=== PATIENT | female | born 1955 | race Caucasian/White ===

== ENCOUNTER 2018-03-21 21:20 | Observation (INO) ==
[2018-03-21] MEDS ORDERED: Morphine Inj 4 MG/ML Vial IV.PUSH ONE (22:15)
[2018-03-21] MEDS ORDERED: Sod Chloride 0.9% Inj 1,000 ML IV.SIG ONE (22:15)
--- NOTE | 2018-03-21 22:27 | ED ---
HPI General Chief Complaint: Abdominal Pain Stated Complaint: Abd Pain Time Seen by Provider: 03/21/18 22:14 Source: patient Mode of arrival: ambulatory Limitations: no limitations History of Present Illness HPI narrative: 62-year-old female with PMH of hypertension presents the ED for evaluation of 710 epigastric abdominal pain. Onset around 8:00 this evening after eating a dinner of 3 slices of pizza. Pain is described as aching, no alleviating or exacerbating factors reported. States the pain radiates to the right side and over to the right side of the back. She endorses accompanying nausea without vomiting. She denies associated chest pain, palpitations, shortness of breath, diaphoresis. She denies dysuria, hematuria, back pain. She denies recent history of fever, chills. She is a lifelong non-smoker. She is unsure of any familial cardiac history. She denies history of abdominal surgery. She endorses occasional alcohol use. No treatment attempted before arrival. Related Data Allergies Allergy/AdvReac Type Severity Reaction Status Date / Time Sulfa (Sulfonamide Allergy Arrhythmias Verified 03/21/18 21:59 Antibiotics) Review of Systems ROS: all other systems reviewed are negative [facility] Medical History Medical History Hypertension (Acute) Surgical History Surgical History No history of previous surgery (Acute) Social History Social History Substance History: No History of Abuse Second Hand Smoke Exposure: No Smoking Status: Never smoker How Often Do You Have a Drink Containing Alcohol: Never Recent Travel in [facility] within the Last 8 Weeks: No Recent Out of Country Travel within the Last 8 Weeks: No Immunization History Tetanus Immunization: >5 Years Hx Influenza Vaccine This Season: No Exam Narrative Exam Narrative: GENERAL: Well-developed, well-nourished white female no acute distress. SKIN: Focused skin assessment warm/dry. HEAD: Atraumatic. Normocephalic. EYES: Pupils equal and round. No scleral icterus. No injection or drainage. ENT: No nasal bleeding or discharge. Mucous membranes pink and moist. NECK: Trachea midline. No JVD. CARDIOVASCULAR: Regular rate and rhythm. No murmur appreciated. RESPIRATORY: No accessory muscle use. Clear to auscultation. Breath sounds equal bilaterally. GASTROINTESTINAL: Abdomen soft, nondistended. No hepatosplenomegaly. Negative Bardales sign. Positive epigastric tenderness to palpation. No CVA tenderness. MUSCULOSKELETAL: No obvious deformities. No clubbing. No cyanosis. No edema. NEUROLOGICAL: Awake and alert. No obvious cranial nerve deficits. Motor grossly within normal limits. Normal speech. PSYCHIATRIC: Appropriate mood and affect; insight and judgment normal. Course Initial Documented Vital Signs Temperature 97.8 F 03/21/18 21:59 Pulse Rate 64 03/21/18 21:59 Respiratory Rate 16 03/21/18 21:59 Blood Pressure 179/87 H 03/21/18 21:59 Pulse Oximetry 99 03/21/18 21:59 Last Documented Vital Signs Temperature 97.8 F 03/21/18 21:59 Pulse Rate 64 03/21/18 21:59 Respiratory Rate 16 03/21/18 21:59 Blood Pressure 179/87 H 03/21/18 21:59 Pulse Oximetry 99 03/21/18 21:59 Medical Decision Making KRISSY Attestation KRISSY supervised visit: Yes Attestation: I, Dr. Garcia, have reviewed the advance practice practitioner's documentation and am in agreement, met with the patient face to face, made the diagnosis, and the medical decision making was done by me. *My assessment and Findings: Patient seen and evaluated with PA, please see PA notes for further details. Abdomen is soft, tender palpation in epigastrium. Lab work was fairly unremarkable. CT of the abdomen shows gallbladder wall thickening, dilatation of the gallbladder, as well as common bile duct dilatation. At this point, plan would be to admit the patient for further evaluation. Case was discussed with Dr. Huber for admission. [facility] Narrative Medical decision making narrative: 62-year-old female with PMH of hypertension presents to the ED for evaluation of 7/10 epigastric pain. Onset around 8 PM after eating a dinner of 3 slices of pizza. Vitals reviewed. On physical examination tenderness in the epigastric area but the exam is otherwise unremarkable. IV established. Patient was administered 4 mg morphine, 4 mg Zofran and 1 L normal saline. Lab work and radiological studies pending. EKG rate 55, sinus bradycardia. Normal intervals. Normal axis. No acute ST changes. Reviewed by Dr. Goetz. Patient signed out to at end of shift. Medical Screen Exam Complete: Yes Emergency Medical Condition: Yes Differential Diagnosis Differential Diagnosis: GERD versus cholecystitis versus pancreatitis versus ACS versus less likely dissecting aneurysm versus other Lab Data Result diagrams: 03/21/18 22:19 03/21/18 22:19 Lab Results 03/21/18 03/21/18 03/21/18 Range/Units 22:19 22:19 22:19 WBC 7.1 (4.0-11.0) th/mm3 RBC 4.62 (4.00-5.30) mil/mm3 Hgb 13.9 (11.6-15.3) gm/dL Hct 41.5 (35.0-46.0) % MCV 89.9 (80.0-100.0) fL MCH 30.0 (27.0-34.0) pg MCHC 33.4 (32.0-36.0) % RDW 15.0 (11.6-17.2) % Plt Count 183 (150-450) th/mm3 MPV 9.1 (7.0-11.0) fL Neut % (Auto) 60.4 (16.0-70.0) % Lymph % (Auto) 29.2 (9.0-44.0) % [place] % (Auto) 9.1 H (0.0-8.0) % Eos % (Auto) 0.8 (0.0-4.0) % Baso % (Auto) 0.5 (0.0-2.0) % Neut # (Auto) 4.3 (1.8-7.7) th/mm3 Lymph # (Auto) 2.1 (1.0-4.8) th/mm3 [place] # (Auto) 0.7 (0.0-0.9) th/mm3 Eos # (Auto) 0.1 (0.0-0.4) th/mm3 Baso # (Auto) 0.0 (0.0-0.2) th/mm3 WBC Differential . Differential Comment Auto diff final Sodium 141 (136-145) meq/L Potassium 3.6 (3.5-5.1) meq/L Chloride 108 H (98-107) meq/L Carbon Dioxide 24.8 (21.0-32.0) meq/L Anion Gap 8 (5-15) meq/L BUN 21 H (7-18) mg/dL Creatinine 0.77 (0.50-1.00) mg/dL Estimated GFR 76 L (>89) mL/min Random Glucose 117 H (74-106) mg/dL Calcium 9.0 (8.5-10.1) mg/dL Total Bilirubin 0.2 (0.2-1.0) mg/dL AST 35 (15-37) U/L ALT 92 H (10-53) U/L Alkaline Phosphatase 64 (45-117) U/L Troponin I Less than 0.02 L (0.02-0.05) ng/mL Total Protein 7.5 (6.4-8.2) g/dL Albumin 4.0 (3.4-5.0) g/dL Lipase 145 (73-393) U/L Urine Color (Yellw/Straw) Urine Clarity (Clear) Urine pH (5.0-8.5) Ur Specific [place] (1.002-1.035) Urine Protein (Neg-Trace) mg/dL Urine Glucose (UA) (Negative) mg/dL Urine Ketones (Negative) mg/dL Urine Occult Blood (Negative) Urine Nitrate (Negative) Urine Bilirubin (Negative) Urine Urobilinogen (Less than 2) mg/dL Ur Leukocyte Esterase (Negative) Urine RBC (0-3) /hpf Urine WBC (0-5) /hpf Ur Squamous Epith Cells (0-5) /hpf Urine Bacteria (None) /hpf Hyaline Casts (0-3) /lpf Urine Mucus (Occasional) /lpf Micro UA Comment Urine Culture Comments 03/22/18 Range/Units 00:24 WBC (4.0-11.0) th/mm3 RBC (4.00-5.30) mil/mm3 Hgb (11.6-15.3) gm/dL Hct (35.0-46.0) % MCV (80.0-100.0) fL MCH (27.0-34.0) pg MCHC (32.0-36.0) % RDW (11.6-17.2) % Plt Count (150-450) th/mm3 MPV (7.0-11.0) fL Neut % (Auto) (16.0-70.0) % Lymph % (Auto) (9.0-44.0) % [place] % (Auto) (0.0-8.0) % Eos % (Auto) (0.0-4.0) % Baso % (Auto) (0.0-2.0) % Neut # (Auto) (1.8-7.7) th/mm3 Lymph # (Auto) (1.0-4.8) th/mm3 [place] # (Auto) (0.0-0.9) th/mm3 Eos # (Auto) (0.0-0.4) th/mm3 Baso # (Auto) (0.0-0.2) th/mm3 WBC Differential Differential Comment Sodium (136-145) meq/L Potassium (3.5-5.1) meq/L Chloride (98-107) meq/L Carbon Dioxide (21.0-32.0) meq/L Anion Gap (5-15) meq/L BUN (7-18) mg/dL Creatinine (0.50-1.00) mg/dL Estimated GFR (>89) mL/min Random Glucose (74-106) mg/dL Calcium (8.5-10.1) mg/dL Total Bilirubin (0.2-1.0) mg/dL AST (15-37) U/L ALT (10-53) U/L Alkaline Phosphatase (45-117) U/L Troponin I (0.02-0.05) ng/mL Total Protein (6.4-8.2) g/dL Albumin (3.4-5.0) g/dL Lipase (73-393) U/L Urine Color Yellow (Yellw/Straw) Urine Clarity Hazy H (Clear) Urine pH 6.0 (5.0-8.5) Ur Specific [place] 1.015 (1.002-1.035) Urine Protein Negative (Neg-Trace) mg/dL Urine Glucose (UA) Negative (Negative) mg/dL Urine Ketones 20 (Negative) mg/dL Urine Occult Blood Negative (Negative) Urine Nitrate Negative (Negative) Urine Bilirubin Negative (Negative) Urine Urobilinogen Less than 2 (Less than 2) mg/dL Ur Leukocyte Esterase Moderate H (Negative) Urine RBC 2 (0-3) /hpf Urine WBC 12 H (0-5) /hpf Ur Squamous Epith Cells 4 (0-5) /hpf Urine Bacteria Rare H (None) /hpf Hyaline Casts 1 (0-3) /lpf Urine Mucus Few H (Occasional) /lpf Micro UA Comment Culture indicated Urine Culture Comments Culture indicated Imaging Data Attestation: I personally reviewed and interpreted this imaging study as follows : Radiologist's impression: Abdomen/Pelvis CT 03/22/18 00:00 CONCLUSION: 1. Distended gallbladder with a thickened gallbladder wall. There is also some mild central intrahepatic biliary duct dilatation. 2. Suspected uterine leiomyoma the posterior uterine body. Discharge Plan Discharge Disposition Patient Disposition: 30 Still Patient Discharge Condition Condition: Stable Discharge Details Anticipated Discharge Date: 03/22/18 Diagnosis: Biliary colic Physicians Team ED Provider: Molina Garcia ED Midlevel Provider: Melissa Fang Primary Care Provider: Lui Love Attending Provider: Oneil Rizo Status ED Status: With Doctor
[2018-03-21 22:31] LABS: Baso % (Auto) 0.5 % (0.0-2.0); Eos # (Auto) 0.1 th/mm3 (0.0-0.4); Eos % (Auto) 0.8 % (0.0-4.0); Hematocrit 41.5 % (35.0-46.0); Hemoglobin 13.9 gm/dL (11.6-15.3); Lymph # (Auto) 2.1 th/mm3 (1.0-4.8); Lymph % (Auto) 29.2 % (9.0-44.0); Mean Corpuscular HGB Conc 33.4 % (32.0-36.0); Mean Corpuscular Volume 89.9 fL (80.0-100.0); Mean Platelet Volume 9.1 fL (7.0-11.0); Mono # (Auto) 0.7 th/mm3 (0.0-0.9); Mono % (Auto) 9.1 % (0.0-8.0); Neut # (Auto) 4.3 th/mm3 (1.8-7.7); Neut % (Auto) 60.4 % (16.0-70.0); Platelet Count 183 th/mm3 (150-450); Red Blood Count 4.62 mil/mm3 (4.00-5.30); White Blood Count 7.1 th/mm3 (4.0-11.0)
[2018-03-21 22:56] LABS: Alanine Aminotransferase 92 U/L (10-53); Anion Gap 8 meq/L (5-15); Aspartate Aminotransferase 35 U/L (15-37); Blood Urea Nitrogen 21 mg/dL (7-18); Carbon Dioxide 24.8 meq/L (21.0-32.0); Chloride 108 meq/L (98-107); Glomerular Filtration Rate 76 mL/min (>89); Glucose,Random 117 mg/dL (74-106); Lipase 145 U/L (73-393); Potassium 3.6 meq/L (3.5-5.1); Sodium 141 meq/L (136-145)
[2018-03-21 22:59] LABS: Alkaline Phosphatase 64 U/L (45-117); Total Protein 7.5 g/dL (6.4-8.2)
[2018-03-22 00:46] LABS: Bacteria,Urine Rare /hpf; Bilirubin,Urine Negative (Negative); Clarity,Urine Hazy (Clear); Color,Urine Yellow (Yellw/Straw); Glucose,Urine (UA) Negative (Negative); Hyaline Casts,Urine 1 /lpf (0-3); Leukocyte Esterase,Urine Moderate (Negative); Mucus,Urine Few /lpf (Occasional); Nitrite,Urine Negative (Negative); Specific Gravity,Urine 1.015 (1.002-1.035); Squamous Epithelial Cell,Urine 4 /hpf (0-5)
--- NOTE | 2018-03-22 01:04 | CT ---
EXAM DATE: 03/22/2018 12:56 AM EDT AGE/SEX: 62 years / Female INDICATIONS: Epigastric abdominal pain for 3 hours. CLINICAL DATA: This is the patient's initial encounter. Patient reports that signs and symptoms have been present for 1 day and indicates a pain score of 7/10. MEDICAL/SURGICAL HISTORY: Hypertension. None. ORAL CONTRAST: No oral contrast ingested. RADIATION DOSE: 8.10 CTDI (mGy) COMPARISON: No prior exams available for comparison. TECHNIQUE: Multiple contiguous axial images were obtained through the abdomen and pelvis following b olus infusion of 95 ml Omnipaque 350 (iohexol) nonionic water-soluble contrast as a single exam dos e. No oral contrast ingested. Using automated exposure control and adjustment of the mA and/or kV ac cording to patient size, radiation dose was kept as low as reasonably achievable to obtain optimal di agnostic quality images. DICOM format image data is available electronically for review and comparis on. FINDINGS: Lower Lungs: The visualized lower lungs are clear. Liver: The liver has a homogeneous density without space-occupying lesion. The gallbladder appears di stended. The gallbladder wall appears thickened. There is mild dilatation of the central intrahepatic biliary ducts. The common bile duct does not appear dilated. There is no dilation of the biliary richard e. Spleen: Homogeneous density without enlargement. Pancreas: Unremarkable without mass or calcification. Kidneys: Normal in size and shape. No evidence of mass or hydronephrosis. Adrenal Glands: Unremarkable. Aorta: The aorta and proximal iliac vessels are grossly unremarkable without aneurysmal dilation. Bowel/Mesentery: The bowel loops are grossly unremarkable. There are a few scattered colonic diverti cula without inflammatory change. The appendix appears normal. The cecum and sigmoid colon have a nor mal configuration. Abdominal Wall: Intact. Retroperitoneum: No evidence of adenopathy in the retrocrural, para-aortic, or deep pelvic regions. Bladder: Contours are smooth. Reproductive Organs: There is a 3.5 cm mass at the posterior uterine body likely related to a leiomy petty. Inguinal: The inguinal region is unremarkable without evidence of adenopathy. Bony Structures: There is degenerative change in the lower lumbar spine. CONCLUSION: 1. Distended gallbladder with a thickened gallbladder wall. There is also some mild central intrahep atic biliary duct dilatation. 2. Suspected uterine leiomyoma the posterior uterine body. Electronically signed by: Levar Osuna MD 03/22/2018 1:03 AM EDT
[2018-03-22] MEDS ORDERED: Morphine Inj 4 MG/ML Vial IV.PUSH PRN (01:57)
[2018-03-22] MEDS ORDERED: Sodium Chloride 0.45 % Inj 1,000 ML IV.CONT SCH (02:00)
[2018-03-22] MEDS ORDERED: Pantoprazole Inj 40 MG Vial IV.PUSH SCH (09:00)
--- NOTE | 2018-03-22 10:18 | ECG ---
Date Performed: 03/21/2018 Time Performed: 22:15:29 PTAGE: 62 years EKG: SINUS BRADYCARDIA BORDERLINE ECG NO PREVIOUS TRACING DOCTOR: Mike Moyer Interpretating Date/Time 03/22/2018 10:15:00
--- NOTE | 2018-03-22 11:34 | P.HP ---
<Cata Hood W - Last Filed: 03/22/18 12:59> History of Present Illness Primary Care Physician: Lui Love DO Chief Complaint: Abdominal pain History of Present Illness: This is a 62-year-old female patient with past medical history which includes hypertension. Patient presented the ED last night due to 7/10 epigastric abdominal pain. Onset around 8:00 03/21 evening after eating a dinner of 3 slices of pizza. Pain is described as aching, no alleviating or exacerbating factors reported. States the pain radiates to the right side and over to the right side of the back. She endorses accompanying nausea without vomiting. She denies associated chest pain, palpitations, shortness of breath, diaphoresis. She denies dysuria, hematuria, back pain. She denies recent history of fever, chills. She is a lifelong non-smoker. She is unsure of any familial cardiac history. She denies history of abdominal surgery. She endorses occasional alcohol use. No treatment attempted before arrival. Abdomen/Pelvis CT 03/22/18 00:00 CONCLUSION: 1. Distended gallbladder with a thickened gallbladder wall. There is also some mild central intrahepatic biliary duct dilatation. 2. Suspected uterine leiomyoma the posterior uterine body. Patient evaluated today and reports abdominal pain resolved. - Diagnosis (1) Biliary colic Review of Systems All other systems reviewed negative except as stated in HPI PMFSH - History History Provided By: Patient - Medical History Medical History: Medical History (Last Updated 03/21/18 @ 22:00 by Rayne Meza RN) Hypertension - Surgical History Surgical History: Surgical History (Last Updated 03/21/18 @ 22:08 by Lc Trammell RN) No history of previous surgery - Tobacco History Second Hand Smoke Exposure: No Tobacco Use In Past 30 Days: No Smoking Status: Never smoker - Alcohol History How Often Do You Have a Drink Containing Alcohol: Never - Substance Use History Substance History: No History of Abuse - Travel History Recent Travel in the [place] Within the Last 8 Weeks: No Recent Travel Out of the Country Within the Last 8 Weeks: No - Immunization History Tetanus Immunization: >5 Years Hx Influenza Vaccine This Season: No Medications and Allergies Allergies Allergy/AdvReac Type Severity Reaction Status Date / Time Sulfa (Sulfonamide Allergy Arrhythmias Verified 03/21/18 21:59 Antibiotics) Home Medications Medication Instructions Recorded Confirmed Type losartan 25 mg PO DAILY 03/22/18 03/22/18 History Active Medications: Active Medications Sodium Chloride (1/2 Normal Saline Inj) 1,000 mls @ 70 mls/hr IV.CONT .[id number] [facility] Last Admin: 03/22/18 05:13 Dose: 70 mls/hr Morphine Sulfate (Morphine Inj) 4 mg IV.PUSH Q4H PRN PRN Reason: PAIN 6-10 Ondansetron HCl (Zofran Inj) 4 mg IV.PUSH Q6H PRN PRN Reason: NAUSEA OR VOMITING Pantoprazole Sodium (Protonix Inj) 40 mg IV.PUSH DAILY [facility] Last Admin: 03/22/18 08:30 Dose: 40 mg Sodium Chloride (Ns Flush) 2 ml IV.FLUSH PRN PRN PRN Reason: FLUSH AFTER USING IV ACCESS Exam Vital signs: Vital Signs 03/21/18 21:59 03/22/18 02:11 03/22/18 03:32 Temperature 97.8 F 98.2 F Pulse Rate 64 73 Respiratory Rate 16 18 Blood Pressure 179/87 H 111/58 L Pulse Oximetry 99 95 03/22/18 08:00 03/22/18 08:02 Temperature 98.6 F Pulse Rate 86 Respiratory Rate 20 Blood Pressure 120/60 Pulse Oximetry 96 Intake & Output 03/21/18 03/22/18 03/22/18 18:59 06:59 18:59 Intake Total 1000 / 1000 Balance 1000 / 1000 Weight 95 kg Intake: IV 1000 / 1000 NS Inj 1,000 ML @ Wide Open IV. 1000 / 1000 SIG BOLUS ONE Rx#:[id number] Oral 0 / 0 Other: # Voids 1 Weight On Admission 95 kg Narrative: GENERAL: This is a well-nourished, well-developed patient, in no apparent distress. CARDIOVASCULAR: Regular rate and rhythm RESPIRATORY: Clear to auscultation. Breath sounds equal bilaterally. GASTROINTESTINAL: Abdomen soft, non-tender, nondistended. Normal active bowel sounds MUSCULOSKELETAL: Extremities without clubbing, cyanosis, or edema. NEURO: Alert & Oriented x4 to person, place, time, situation. Moves all ext x4 Results - Labs CBC & Chem 7: 03/21/18 22:19 03/21/18 22:19 Labs: Laboratory Results - last 24 hr 03/21/18 03/21/18 03/21/18 22:19 22:19 22:19 WBC 7.1 RBC 4.62 Hgb 13.9 Hct 41.5 MCV 89.9 MCH 30.0 MCHC 33.4 RDW 15.0 Plt Count 183 MPV 9.1 Neut % (Auto) 60.4 Lymph % (Auto) 29.2 [place] % (Auto) 9.1 H Eos % (Auto) 0.8 Baso % (Auto) 0.5 Neut # (Auto) 4.3 Lymph # (Auto) 2.1 [place] # (Auto) 0.7 Eos # (Auto) 0.1 Baso # (Auto) 0.0 WBC Differential . Differential Comment Auto diff final Sodium 141 Potassium 3.6 Chloride 108 H Carbon Dioxide 24.8 Anion Gap 8 BUN 21 H Creatinine 0.77 Estimated GFR 76 L Random Glucose 117 H Calcium 9.0 Total Bilirubin 0.2 AST 35 ALT 92 H Alkaline Phosphatase 64 Troponin I Less than 0.02 L Total Protein 7.5 Albumin 4.0 Lipase 145 Urine Color Urine Clarity Urine pH Ur Specific [place] Urine Protein Urine Glucose (UA) Urine Ketones Urine Occult Blood Urine Nitrate Urine Bilirubin Urine Urobilinogen Ur Leukocyte Esterase Urine RBC Urine WBC Ur Squamous Epith Cells Urine Bacteria Hyaline Casts Urine Mucus Micro UA Comment Urine Culture Comments 03/22/18 00:24 WBC RBC Hgb Hct MCV MCH MCHC RDW Plt Count MPV Neut % (Auto) Lymph % (Auto) [place] % (Auto) Eos % (Auto) Baso % (Auto) Neut # (Auto) Lymph # (Auto) [place] # (Auto) Eos # (Auto) Baso # (Auto) WBC Differential Differential Comment Sodium Potassium Chloride Carbon Dioxide Anion Gap BUN Creatinine Estimated GFR Random Glucose Calcium Total Bilirubin AST ALT Alkaline Phosphatase Troponin I Total Protein Albumin Lipase Urine Color Yellow Urine Clarity Hazy H Urine pH 6.0 Ur Specific [place] 1.015 Urine Protein Negative Urine Glucose (UA) Negative Urine Ketones 20 Urine Occult Blood Negative Urine Nitrate Negative Urine Bilirubin Negative Urine Urobilinogen Less than 2 Ur Leukocyte Esterase Moderate H Urine RBC 2 Urine WBC 12 H Ur Squamous Epith Cells 4 Urine Bacteria Rare H Hyaline Casts 1 Urine Mucus Few H Micro UA Comment Culture indicated Urine Culture Comments Culture indicated - Imaging Impressions Abdomen/Pelvis CT 03/22/18 00:00 CONCLUSION: 1. Distended gallbladder with a thickened gallbladder wall. There is also some mild central intrahepatic biliary duct dilatation. 2. Suspected uterine leiomyoma the posterior uterine body. Caprini VTE Risk Assessment Caprini VTE Risk Assessment: No/Low Risk (score <= 1) Caprini Risk Assessment Model: Point Value = 1 Point Value = 2 Point Value = 3 Point Value = 5 Age 41-60 Minor surgery BMI > 25 kg/m2 Swollen legs Varicose veins or History of unexplained or recurrent spontaneous Oral contraceptives or hormone replacement Sepsis (< 1 month) Serious lung disease, including pneumonia (< 1 month) Abnormal pulmonary function Acute myocardial infarction Congestive heart failure (< 1 month) History of inflammatory bowel disease Medical patient at bed rest Age 61-74 Arthroscopic surgery Major open surgery (> 45 min) Laparoscopic surgery (> 45 min) Malignancy Confined to bed (> 72 hours) Immobilizing plaster cast Central venous access Age >= 75 History of VTE Family history of VTE Factor V Leiden Prothrombin [id number] Lupus anticoagulant Anticardiolipin antibodies Elevated serum homocysteine Heparin-induced thrombocytopenia Other congenital or acquired thrombophilia Stroke (< 1 month) Elective arthroplasty Hip, pelvis, or leg fracture Acute spinal cord injury (< 1 month) Prophylaxis Regimen: Total Risk Factor Score Risk Level Prophylaxis Regimen 0-1 Low Early ambulation 2 Moderate Order ONE of the following: *Sequential Compression Device (SCD) *Heparin 5000 units SQ BID 3-4 Higher Order ONE of the following medications: *Heparin 5000 units SQ TID *Enoxaparin/Lovenox 40 mg SQ daily (WT < 150 kg, CrCl > 30 mL/min) *Enoxaparin/Lovenox 30 mg SQ daily (WT < 150 kg, CrCl > 10-29 mL/min) *Enoxaparin/Lovenox 30 mg SQ BID (WT < 150 kg, CrCl > 30 mL/min) AND/OR *Sequential Compression Device (SCD) 5 or more Highest Order ONE of the following medications: *Heparin 5000 units SQ TID (Preferred with Epidurals) *Enoxaparin/Lovenox 40 mg SQ daily (WT < 150 kg, CrCl > 30 mL/min) *Enoxaparin/Lovenox 30 mg SQ daily (WT < 150 kg, CrCl > 10-29 mL/min) *Enoxaparin/Lovenox 30 mg SQ BID (WT < 150 kg, CrCl > 30 mL/min) AND *Sequential Compression Device (SCD) Assessment and Plan - Assessment (1) Biliary colic Code(s): K80.50 - Calculus of bile duct without cholangitis or cholecystitis without obstruction Status: Acute Plan: This is a 62-year-old female patient with past medical history which includes hypertension. Patient presented the ED last night due to 7/10 epigastric abdominal pain. Onset around 8:00 03/21 evening after eating a dinner of 3 slices of pizza. Pain is described as aching, no alleviating or exacerbating factors reported. States the pain radiates to the right side and over to the right side of the back. She endorses accompanying nausea without vomiting. She denies associated chest pain, palpitations, shortness of breath, diaphoresis. She denies dysuria, hematuria, back pain. She denies recent history of fever, chills. She is a lifelong non-smoker. She is unsure of any familial cardiac history. She denies history of abdominal surgery. She endorses occasional alcohol use. No treatment attempted before arrival. Abdomen/Pelvis CT 03/22/18 00:00 CONCLUSION: 1. Distended gallbladder with a thickened gallbladder wall. There is also some mild central intrahepatic biliary duct dilatation. 2. Suspected uterine leiomyoma the posterior uterine body. Patient evaluated today and reports abdominal pain resolved. Dr. Arroyo discussed the case with general surgery on-call Dr. Mixon who recommends patient follow-up in his office as an outpatient next week Plan to discharge patient recommend avoiding fatty foods <Christophe Arroyo - Last Filed: 03/26/18 12:46> History of Present Illness Primary Care Physician: Lui Love DO - Diagnosis (1) Biliary colic [facility] - Medical History Medical History: Medical History (Last Updated 03/21/18 @ 22:00 by Rayne Meza RN) Hypertension - Surgical History Surgical History: Surgical History (Last Updated 03/21/18 @ 22:08 by cL Trammell RN) No history of previous surgery Results - Labs CBC & Chem 7: 03/21/18 22:19 03/21/18 22:19 Caprini VTE Risk Assessment Caprini Risk Assessment Model: Point Value = 1 Point Value = 2 Point Value = 3 Point Value = 5 Age 41-60 Minor surgery BMI > 25 kg/m2 Swollen legs Varicose veins or History of unexplained or recurrent spontaneous Oral contraceptives or hormone replacement Sepsis (< 1 month) Serious lung disease, including pneumonia (< 1 month) Abnormal pulmonary function Acute myocardial infarction Congestive heart failure (< 1 month) History of inflammatory bowel disease Medical patient at bed rest Age 61-74 Arthroscopic surgery Major open surgery (> 45 min) Laparoscopic surgery (> 45 min) Malignancy Confined to bed (> 72 hours) Immobilizing plaster cast Central venous access Age >= 75 History of VTE Family history of VTE Factor V Leiden Prothrombin [id number] Lupus anticoagulant Anticardiolipin antibodies Elevated serum homocysteine Heparin-induced thrombocytopenia Other congenital or acquired thrombophilia Stroke (< 1 month) Elective arthroplasty Hip, pelvis, or leg fracture Acute spinal cord injury (< 1 month) Prophylaxis Regimen: Total Risk Factor Score Risk Level Prophylaxis Regimen 0-1 Low Early ambulation 2 Moderate Order ONE of the following: *Sequential Compression Device (SCD) *Heparin 5000 units SQ BID 3-4 Higher Order ONE of the following medications: *Heparin 5000 units SQ TID *Enoxaparin/Lovenox 40 mg SQ daily (WT < 150 kg, CrCl > 30 mL/min) *Enoxaparin/Lovenox 30 mg SQ daily (WT < 150 kg, CrCl > 10-29 mL/min) *Enoxaparin/Lovenox 30 mg SQ BID (WT < 150 kg, CrCl > 30 mL/min) AND/OR *Sequential Compression Device (SCD) 5 or more Highest Order ONE of the following medications: *Heparin 5000 units SQ TID (Preferred with Epidurals) *Enoxaparin/Lovenox 40 mg SQ daily (WT < 150 kg, CrCl > 30 mL/min) *Enoxaparin/Lovenox 30 mg SQ daily (WT < 150 kg, CrCl > 10-29 mL/min) *Enoxaparin/Lovenox 30 mg SQ BID (WT < 150 kg, CrCl > 30 mL/min) AND *Sequential Compression Device (SCD) Assessment and Plan - Assessment (1) Biliary colic Code(s): K80.50 - Calculus of bile duct without cholangitis or cholecystitis without obstruction Status: Acute - Attending Attestation Patient examined. Assessment and plan formulated with Cata SUBRAMANIAN I agree with the above.
--- NOTE | 2018-03-22 12:25 | P.DS ---
<Cata Hood W - Last Filed: 03/22/18 12:59> Date of admission: 03/22/18 01:43 Primary care physician: Lui Love DO Attending physician on discharge: Christophe Arroyo Anticipated date of discharge: 03/22/18 Brief History from admission: This is a 62-year-old female patient with past medical history which includes hypertension. Patient presented the ED last night due to 7/10 epigastric abdominal pain. Onset around 8:00 8/16 evening after eating a dinner of 3 slices of pizza. Pain is described as aching, no alleviating or exacerbating factors reported. States the pain radiates to the right side and over to the right side of the back. She endorses accompanying nausea without vomiting. She denies associated chest pain, palpitations, shortness of breath, diaphoresis. She denies dysuria, hematuria, back pain. She denies recent history of fever, chills. She is a lifelong non-smoker. She is unsure of any familial cardiac history. She denies history of abdominal surgery. She endorses occasional alcohol use. No treatment attempted before arrival. Abdomen/Pelvis CT 03/22/18 00:00 CONCLUSION: 1. Distended gallbladder with a thickened gallbladder wall. There is also some mild central intrahepatic biliary duct dilatation. 2. Suspected uterine leiomyoma the posterior uterine body. Patient evaluated today and reports abdominal pain resolved. DS: Diagnosis - Discharge Diagnosis (1) Biliary colic Status: Acute DS: Medications - Discharge Medications Prescriptions: hydrocodone-acetaminophen 1 tab PO Q6H PRN #12 tab PRN Reason: Pain Scale 1 To 10 DS: Summary Hospital Course: This is a 62-year-old female patient with past medical history which includes hypertension. Patient presented the ED last night due to 7/10 epigastric abdominal pain. Onset around 8:00 8/16 evening after eating a dinner of 3 slices of pizza. Pain is described as aching, no alleviating or exacerbating factors reported. States the pain radiates to the right side and over to the right side of the back. She endorses accompanying nausea without vomiting. She denies associated chest pain, palpitations, shortness of breath, diaphoresis. She denies dysuria, hematuria, back pain. She denies recent history of fever, chills. She is a lifelong non-smoker. She is unsure of any familial cardiac history. She denies history of abdominal surgery. She endorses occasional alcohol use. No treatment attempted before arrival. Abdomen/Pelvis CT 03/22/18 00:00 CONCLUSION: 1. Distended gallbladder with a thickened gallbladder wall. There is also some mild central intrahepatic biliary duct dilatation. 2. Suspected uterine leiomyoma the posterior uterine body. Patient evaluated today and reports abdominal pain resolved. Dr. Arroyo discussed the case with general surgery on-call Dr. Mixon who recommends patient follow-up in his office as an outpatient next week Plan to discharge patient recommend avoiding fatty foods - Time Spent with Patient Total time spent providing and/or coordinating discharge services: Greater than 30 minutes - Quality: VTE Deep Vein Thrombosis/Pulmonary Embolism Present on Admission: No Exam Vital signs: Vital Signs 03/21/18 21:59 03/22/18 02:11 03/22/18 03:32 Temperature 97.8 F 98.2 F Pulse Rate 64 73 Respiratory Rate 16 16 18 Blood Pressure 179/87 H 111/58 L Pulse Oximetry 99 95 03/22/18 08:00 03/22/18 08:02 03/22/18 12:04 Temperature 98.6 F 98.2 F Pulse Rate 86 72 Respiratory Rate 20 20 Blood Pressure 120/60 148/80 H Pulse Oximetry 96 18 L Intake & Output 03/21/18 03/22/18 03/22/18 18:59 06:59 18:59 Intake Total 1000 / 1000 Balance 1000 / 1000 Weight 95 kg Intake: IV 1000 / 1000 NS Inj 1,000 ML @ Wide Open IV. 1000 / 1000 SIG BOLUS ONE Rx#:[id number] Oral 0 / 0 Other: # Voids 1 Weight On Admission 95 kg Narrative: GENERAL: This is a well-nourished, well-developed patient, in no apparent distress. CARDIOVASCULAR: Regular rate and rhythm RESPIRATORY: Clear to auscultation. Breath sounds equal bilaterally. GASTROINTESTINAL: Abdomen soft, non-tender, nondistended. Normal active bowel sounds MUSCULOSKELETAL: Extremities without clubbing, cyanosis, or edema. NEURO: Alert & Oriented x4 to person, place, time, situation. Moves all ext x4 Results Procedures completed during hospitalization: None Labs on day of discharge: Labs from last 24 hours 03/22/18 03/21/18 03/21/18 00:24 22:19 22:19 WBC RBC Hgb Hct MCV MCH MCHC RDW Plt Count MPV Neut % (Auto) Lymph % (Auto) [place] % (Auto) Eos % (Auto) Baso % (Auto) Neut # (Auto) Lymph # (Auto) [place] # (Auto) Eos # (Auto) Baso # (Auto) WBC Differential Differential Comment Sodium 141 Potassium 3.6 Chloride 108 H Carbon Dioxide 24.8 Anion Gap 8 BUN 21 H Creatinine 0.77 Estimated GFR 76 L Random Glucose 117 H Calcium 9.0 Total Bilirubin 0.2 AST 35 ALT 92 H Alkaline Phosphatase 64 Troponin I Less than 0.02 L Total Protein 7.5 Albumin 4.0 Lipase 145 Urine Color Yellow Urine Clarity Hazy H Urine pH 6.0 Ur Specific [place] 1.015 Urine Protein Negative Urine Glucose (UA) Negative Urine Ketones 20 Urine Occult Blood Negative Urine Nitrate Negative Urine Bilirubin Negative Urine Urobilinogen Less than 2 Ur Leukocyte Esterase Moderate H Urine RBC 2 Urine WBC 12 H Ur Squamous Epith Cells 4 Urine Bacteria Rare H Hyaline Casts 1 Urine Mucus Few H Micro UA Comment Culture indicated Urine Culture Comments Culture indicated 03/21/18 22:19 WBC 7.1 RBC 4.62 Hgb 13.9 Hct 41.5 MCV 89.9 MCH 30.0 MCHC 33.4 RDW 15.0 Plt Count 183 MPV 9.1 Neut % (Auto) 60.4 Lymph % (Auto) 29.2 [place] % (Auto) 9.1 H Eos % (Auto) 0.8 Baso % (Auto) 0.5 Neut # (Auto) 4.3 Lymph # (Auto) 2.1 [place] # (Auto) 0.7 Eos # (Auto) 0.1 Baso # (Auto) 0.0 WBC Differential . Differential Comment Auto diff final Sodium Potassium Chloride Carbon Dioxide Anion Gap BUN Creatinine Estimated GFR Random Glucose Calcium Total Bilirubin AST ALT Alkaline Phosphatase Troponin I Total Protein Albumin Lipase Urine Color Urine Clarity Urine pH Ur Specific [place] Urine Protein Urine Glucose (UA) Urine Ketones Urine Occult Blood Urine Nitrate Urine Bilirubin Urine Urobilinogen Ur Leukocyte Esterase Urine RBC Urine WBC Ur Squamous Epith Cells Urine Bacteria Hyaline Casts Urine Mucus Micro UA Comment Urine Culture Comments - Impressions ITS Impressions Abdomen/Pelvis CT 03/22/18 00:00 CONCLUSION: 1. Distended gallbladder with a thickened gallbladder wall. There is also some mild central intrahepatic biliary duct dilatation. 2. Suspected uterine leiomyoma the posterior uterine body. <Arroyo,Edward B - Last Filed: 03/26/18 12:47> Date of admission: 03/22/18 01:43 Primary care physician: Lui Love DO DS: Diagnosis - Discharge Diagnosis (1) Biliary colic Status: Acute DS: Summary Hospital Course: Patient examined. Assessment and plan formulated with Cata Hood PA-C. I agree with the above. - Time Spent with Patient Total time spent providing and/or coordinating discharge services: Results - Impressions ITS Impressions Abdomen/Pelvis CT 03/22/18 00:00 CONCLUSION: 1. Distended gallbladder with a thickened gallbladder wall. There is also some mild central intrahepatic biliary duct dilatation. 2. Suspected uterine leiomyoma the posterior uterine body. Discharge Plan - Discharge Order Discharge Orders: Discharge Order (Routine); Ordered 03/22/18 Ordered By: Cata Hood - Discharge Details Anticipated Discharge Date: 03/22/18 - Physicians Team Primary Care Provider: Lui Love Attending Provider: Christophe Arroyo
== END 2018-03-22 15:10 | disposition home or self-care (01) ==
LOC: NEPE 21:20 → NEDA 21:20 → NEPGCP 21:20 → NEDA 03-22 02:11 → NEPGCP 03-22 02:13
PROVIDERS: ADMIT Hospitalist; ATTEND Hospitalist
DX: K80.50 Calculus of bile duct without cholangitis or cholecystitis without obstruction; R10.13 Epigastric pain; I10 Essential (primary) hypertension; K82.8 Other specified diseases of gallbladder; Z88.2 Allergy status to sulfonamides